=== PATIENT | male | born 2000 | race Caucasian/White ===

== ENCOUNTER 2022-11-18 11:34 | Emergency (ER) | payer OTHER, SELFPAY ==
[2022-11-18] VITALS (34 sets, daily range): BP systolic 99–135; BP diastolic 48–73; PULSE 103–134; RESP 18–30; TEMP 36.8–38.1; O2SAT 93–99; BMI 36.2
--- NOTE | 2022-11-18 12:09 | DI.RAD.S_ITS ---
PROCEDURE: XR CHEST 1V INDICATIONS: suspected sepsis TECHNIQUE: One view of the chest was acquired. COMPARISON: None. FINDINGS: Surgical changes and devices: None. Lungs and pleura: Lungs are clear. No pleural effusions or pneumothorax. Mediastinum: Mediastinal contours appear normal. Heart size is normal. Bones and chest wall: No suspicious bony lesions. Overlying soft tissues appear unremarkable. IMPRESSION: Normal for age, source of current sepsis symptoms is not seen. Dictated by: Wilfredo Cornejo M.D. on 11/18/2022 at 13:02 Approved by: Wilfredo Cornejo M.D. on 11/18/2022 at 13:02
[2022-11-18] MEDS: SODIUM CHLORIDE 0.9% 1,000 ML 1000 ML IV ×2 (12:42→14:03)
[2022-11-18] MEDS: ONDANSETRON 4 MG ODT SL (12:42)
[2022-11-18 12:54] LABS: Add Manual Diff / Slide Review NO; Basophils Absolute Auto 0 /uL (0-100); Basophils Percent Auto 0.2 % (0-2); Eosinophils Absolute Auto 100 /uL (0-450); Eosinophils Percent Auto 0.6 % (2-4); Hematocrit 42.2 % (41-53); Hemoglobin 13.9 g/dL (13.5-17.5); Lymphocytes Absolute Auto 700 /uL (1100-4500); Mean Corpuscular HGB Conc 32.9 % (30-36); Mean Corpuscular Hemoglobin 27.3 PG (26-34); Mean Corpuscular Volume 82.9 fL (80-100); Monocytes Absolute Auto 1000 /uL (0-900); Monocytes Percent Auto 8.5 % (3-14); Neutrophils Absolute Auto 10200 /uL (1500-7000); Neutrophils Percent Auto 84.7 % (50-75); Platelet Count 243 X10^3/uL (150-400); Red Blood Cell Count 5.09 X10^6/uL (4.5-5.9); Red Cell Distribution Width 14.3 % (11.6-14.8); White Blood Cell Count 12.1 X10^3/uL (4.5-11.0)
--- NOTE | 2022-11-18 13:00 | ED.SOB ---
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 Patient's reports that she noticed that he was not breathing for up to 30 seconds and had difficulty waking him. Patient has had symptoms of VANCE in the past and is being referred to sleep medicine for a sleep study. Patient's used a home pulse oximeter and reports a low of 89% and high of 98%. reports that patient was not mentating properly and decided to bring him in for evaluation. No familial history of cardiac or respiratory issues, other than asthma and high cholesterol. Patient has had COVID in the past and experienced body aches, lightheadedness and worsening cough. Related Data Allergies Allergy/AdvReac Type Severity Reaction Status Date / Time No Known Drug Allergies Allergy Verified 11/18/22 13:13 Review of Systems <NEIL Coelho - Last Filed: 11/18/22 17:54> Review of Systems Narrative: Narrative: See HPI. GENERAL: Denies chills, fatigue, fever, sweats. HEENT: Denies sinus pain, ear pain, sore throat, difficulty swallowing. RESPIRATORY: Denies dyspnea, cough, wheezing, sputum. CARDIOVASCULAR: Denies chest pain, palpitations, edema. GASTROINTESTINAL: Denies vomiting, abdominal pain, diarrhea, constipation. Endorses nausea. : Denies dysuria, frequency, incontinence, hematuria, urinary retention, flank pain. MSK: Denies weakness, joint pain, or bony pain. Endorses body aches. SKIN: Denies rash, skin lesions, or pruritis. NEUROLOGIC: Denies weakness, headache, numbness, confusion. Endorses dizziness and lightheadedness. PSYCHIATRIC: No concerning psychosocial issues. Patient History <NEIL Coelho - Last Filed: 11/18/22 17:54> Social History Smoking Status: Never smoker Smoking Status: Never smoker alcohol intake frequency: 0-2 drinks per day Substance Use Type: does not use Exam <NEIL Coelho - Last Filed: 11/18/22 17:54> Narrative Exam Narrative: Exam Narrative: GENERAL: This is a well-nourished, well-developed patient, in mild distress. HEAD: Atraumatic. Normocephalic. EYES: Pupils equal round and reactive. Extraocular motions intact. No scleral icterus, injection or drainage. ENT: Nose without bleeding, purulent drainage. Throat without erythema, tonsillar hypertrophy or exudate. Uvula midline. Airway patent. TMs and canals clear. No sinus tenderness. NECK: Trachea midline. No JVD or lymphadenopathy. Nontender. CARDIOVASCULAR: Regular rate and rhythm without murmurs, peripheral pulses intact, cap refill <2 sec. RESPIRATORY: Breath sounds equal and clear bilaterally. No wheezes, rales, or rhonchi. No cough. No increased respiratory effort. No accessory muscle use. GASTROINTESTINAL: Abdomen soft, non-tender, nondistended without guarding or rebound. No suprapubic pain. MSK: Moves all extremities. Normal range of motion, no clubbing or edema. Neurovascularly intact. NEURO: A&O x 3. SKIN: Warm, dry, no rashes or lesions noted. Initial Vital Signs Initial Vital Signs: Vital Signs Temperature 100.5 F H 11/18/22 12:13 Pulse Rate 134 H 11/18/22 12:13 Respiratory Rate 30 H 11/18/22 12:13 Blood Pressure 126/68 11/18/22 12:13 Pulse Oximetry 98 11/18/22 12:13 Oxygen Delivery Method Room Air 11/18/22 12:13 Reviewed <Kathleen Dubois DO - Last Filed: 11/18/22 20:00> Initial Vital Signs Initial Vital Signs: Vital Signs Temperature 100.5 F H 11/18/22 12:13 Pulse Rate 134 H 11/18/22 12:13 Respiratory Rate 30 H 11/18/22 12:13 Blood Pressure 126/68 11/18/22 12:13 Pulse Oximetry 98 11/18/22 12:13 Oxygen Delivery Method Room Air 11/18/22 12:13 Scores <NEIL Coelho - Last Filed: 11/18/22 17:54> Wells' Criteria for PE Clinical signs and symptoms of DVT: No PE is #1 Dx or equally likely: No Heart rate > 100: Yes Immobilization at least 3 days or surg in previous 4 weeks: No History of PE or DVT: No Hemoptysis: No Malignancy w/Treatment within 6 months or palliative: No Wells' PE Score total: 1.5 Citation:: D-dimer 474 <Kathleen Dubois DO - Last Filed: 11/18/22 20:00> Wells' Criteria for PE Wells' PE Score total: 1.5 Course <NEIL Coelho - Last Filed: 11/18/22 17:54> Orders Ordered: ED Orders 11/18/22 12:03 Covid-19 + FLU A/B + RSV - PCR Stat 11/18/22 12:09 XR chest 1V Stat RT Consult Eval and Treat NOW 11/18/22 12:13 EKG-12 Lead Stat 11/18/22 12:22 Measure peak expiratory flow ONCE RT Consult Eval and Treat NOW 11/18/22 12:30 Complete Blood Count AUTO DIFF Stat Comprehensive Metabolic Panel Stat D Dimer Stat Lactate (Lactic Acid) Stat Lipase Stat PTT Partial Thromboplastin Phi Stat Procalcitonin Stat Prothrombin Time INR Stat Troponin & CK Cardiac Panel Stat 11/18/22 13:02 Urine Culture Stat Urine Microscopic Stat 11/18/22 13:10 Blood Culture Stat 11/18/22 16:46 CT angio chest PE protocol Stat Discontinued Medications Sodium Chloride (Normal Saline 0.9%) 1,000 mls @ 1,000 mls/hr IV BOLUS ONE Stop: 11/18/22 13:08 Last Infusion: 11/18/22 13:55 Dose: 0 mls/hr Documented By: Admin: 11/18/22 12:42 Dose: 1,000 mls/hr Documented By: RB Sodium Chloride (Normal Saline 0.9%) 1,000 mls @ 1,000 mls/hr IV BOLUS ONE Stop: 11/18/22 13:31 Last Infusion: 11/18/22 15:41 Dose: 0 mls/hr Documented By: Admin: 11/18/22 14:03 Dose: 1,000 mls/hr Documented By: RB Ketorolac Tromethamine (Ketorolac 30 Mg/Ml Vial) 30 mg IV NOW ONE Stop: 11/18/22 14:53 Last Admin: 11/18/22 15:40 Dose: 30 mg Documented By: BRENTON Ondansetron HCl (Ondansetron 4 Mg Odt) 4 mg SL NOW PRN PRN Reason: Nausea And Vomiting Last Admin: 11/18/22 12:42 Dose: 4 mg Documented By: BRENTON Ondansetron HCl (Ondansetron 4 Mg/2 Ml Inj) 4 mg IV NOW PRN PRN Reason: Nausea And Vomiting Vital Signs Vital signs: Vital Signs - 8 hr 11/18/22 12:13 11/18/22 12:49 11/18/22 12:50 Temperature 100.5 F H Pulse Rate 134 H 130 H 129 H Respiratory Rate 30 H Blood Pressure 126/68 Pulse Oximetry 98 98 98 Oxygen Delivery Method Room Air 11/18/22 12:50 11/18/22 13:00 11/18/22 13:00 Temperature Pulse Rate 126 H Respiratory Rate 19 Blood Pressure 125/58 L 120/58 L Pulse Oximetry 98 Oxygen Delivery Method 11/18/22 13:15 11/18/22 13:16 11/18/22 13:16 Temperature Pulse Rate 124 H 122 H Respiratory Rate 22 19 Blood Pressure 128/59 L Pulse Oximetry 99 99 Oxygen Delivery Method 11/18/22 13:30 11/18/22 13:30 11/18/22 13:45 Temperature Pulse Rate 116 H Respiratory Rate Blood Pressure 126/59 L 128/60 Pulse Oximetry 97 Oxygen Delivery Method 11/18/22 13:45 11/18/22 14:00 11/18/22 14:00 Temperature Pulse Rate 121 H 113 H Respiratory Rate 18 18 Blood Pressure 135/64 Pulse Oximetry 98 97 Oxygen Delivery Method 11/18/22 14:15 11/18/22 14:15 11/18/22 14:30 Temperature Pulse Rate 111 H Respiratory Rate 23 Blood Pressure 116/73 125/58 L Pulse Oximetry 97 Oxygen Delivery Method 11/18/22 14:30 11/18/22 14:45 11/18/22 14:45 Temperature Pulse Rate 121 H 122 H Respiratory Rate 22 Blood Pressure 123/60 Pulse Oximetry 98 98 Oxygen Delivery Method 11/18/22 15:35 11/18/22 15:45 11/18/22 16:00 Temperature Pulse Rate 130 H 123 H 130 H Respiratory Rate 19 Blood Pressure Pulse Oximetry 98 98 95 Oxygen Delivery Method 11/18/22 16:15 11/18/22 16:30 11/18/22 16:45 Temperature 98.2 F Pulse Rate 124 H 114 H 120 H Respiratory Rate 24 20 Blood Pressure Pulse Oximetry 95 94 96 Oxygen Delivery Method 11/18/22 16:46 11/18/22 16:46 11/18/22 16:47 Temperature Pulse Rate 118 H 114 H Respiratory Rate 19 22 Blood Pressure 119/58 L Pulse Oximetry 95 95 Oxygen Delivery Method 11/18/22 16:47 11/18/22 17:04 11/18/22 17:15 Temperature Pulse Rate 110 H Respiratory Rate 24 Blood Pressure 119/58 L Pulse Oximetry 96 95 Oxygen Delivery Method 11/18/22 17:25 11/18/22 17:26 11/18/22 17:26 Temperature Pulse Rate 109 H 107 H Respiratory Rate 23 22 Blood Pressure 104/51 L Pulse Oximetry 95 97 Oxygen Delivery Method 11/18/22 17:29 11/18/22 17:29 11/18/22 17:30 Temperature Pulse Rate 107 H Respiratory Rate 18 Blood Pressure 106/51 L 112/48 L Pulse Oximetry 96 Oxygen Delivery Method 11/18/22 17:30 11/18/22 17:35 11/18/22 17:35 Temperature Pulse Rate 108 H 103 H Respiratory Rate 21 21 Blood Pressure 110/52 L Pulse Oximetry 96 94 Oxygen Delivery Method 11/18/22 17:40 11/18/22 17:40 11/18/22 18:07 Temperature Pulse Rate 107 H 103 H Respiratory Rate 20 24 Blood Pressure 111/50 L 104/49 L Pulse Oximetry 94 97 Oxygen Delivery Method Room Air 11/18/22 17:45 11/18/22 17:45 11/18/22 17:50 Temperature Pulse Rate 108 H Respiratory Rate 21 Blood Pressure 112/59 L 114/56 L Pulse Oximetry 94 Oxygen Delivery Method 11/18/22 17:50 11/18/22 17:55 11/18/22 17:55 Temperature Pulse Rate 109 H 105 H Respiratory Rate 19 26 H Blood Pressure 101/50 L Pulse Oximetry 95 94 Oxygen Delivery Method 11/18/22 18:00 11/18/22 18:00 11/18/22 18:05 Temperature Pulse Rate 103 H Respiratory Rate 24 Blood Pressure 99/55 L 104/49 L Pulse Oximetry 93 Oxygen Delivery Method 11/18/22 18:05 Temperature Pulse Rate Respiratory Rate Blood Pressure Pulse Oximetry 97 Oxygen Delivery Method <Kathleen Dubois, - Last Filed: 11/18/22 20:00> Orders Ordered: ED Orders 11/18/22 12:03 Covid-19 + FLU A/B + RSV - PCR Stat 11/18/22 12:09 XR chest 1V Stat RT Consult Eval and Treat NOW 11/18/22 12:13 EKG-12 Lead Stat 11/18/22 12:22 Measure peak expiratory flow ONCE RT Consult Eval and Treat NOW 11/18/22 12:30 Complete Blood Count AUTO DIFF Stat Comprehensive Metabolic Panel Stat D Dimer Stat Lactate (Lactic Acid) Stat Lipase Stat PTT Partial Thromboplastin Phi Stat Procalcitonin Stat Prothrombin Time INR Stat Troponin & CK Cardiac Panel Stat 11/18/22 13:02 Urine Culture Stat Urine Microscopic Stat 11/18/22 13:10 Blood Culture Stat 11/18/22 16:46 CT angio chest PE protocol Stat Discontinued Medications Sodium Chloride (Normal Saline 0.9%) 1,000 mls @ 1,000 mls/hr IV BOLUS ONE Stop: 11/18/22 13:08 Last Infusion: 11/18/22 13:55 Dose: 0 mls/hr Documented By: Admin: 11/18/22 12:42 Dose: 1,000 mls/hr Documented By: RB Sodium Chloride (Normal Saline 0.9%) 1,000 mls @ 1,000 mls/hr IV BOLUS ONE Stop: 11/18/22 13:31 Last Infusion: 11/18/22 15:41 Dose: 0 mls/hr Documented By: Admin: 11/18/22 14:03 Dose: 1,000 mls/hr Documented By: RB Ketorolac Tromethamine (Ketorolac 30 Mg/Ml Vial) 30 mg IV NOW ONE Stop: 11/18/22 14:53 Last Admin: 11/18/22 15:40 Dose: 30 mg Documented By: RB Ondansetron HCl (Ondansetron 4 Mg Odt) 4 mg SL NOW PRN PRN Reason: Nausea And Vomiting Last Admin: 11/18/22 12:42 Dose: 4 mg Documented By: RB Ondansetron HCl (Ondansetron 4 Mg/2 Ml Inj) 4 mg IV NOW PRN PRN Reason: Nausea And Vomiting Vital Signs Vital signs: Vital Signs - 8 hr 11/18/22 12:13 11/18/22 12:49 11/18/22 12:50 Temperature 100.5 F H Pulse Rate 134 H 130 H 129 H Respiratory Rate 30 H Blood Pressure 126/68 Pulse Oximetry 98 98 98 Oxygen Delivery Method Room Air 11/18/22 12:50 11/18/22 13:00 11/18/22 13:00 Temperature Pulse Rate 126 H Respiratory Rate 19 Blood Pressure 125/58 L 120/58 L Pulse Oximetry 98 Oxygen Delivery Method 11/18/22 13:15 11/18/22 13:16 11/18/22 13:16 Temperature Pulse Rate 124 H 122 H Respiratory Rate 22 19 Blood Pressure 128/59 L Pulse Oximetry 99 99 Oxygen Delivery Method 11/18/22 13:30 11/18/22 13:30 11/18/22 13:45 Temperature Pulse Rate 116 H Respiratory Rate Blood Pressure 126/59 L 128/60 Pulse Oximetry 97 Oxygen Delivery Method 11/18/22 13:45 11/18/22 14:00 11/18/22 14:00 Temperature Pulse Rate 121 H 113 H Respiratory Rate 18 18 Blood Pressure 135/64 Pulse Oximetry 98 97 Oxygen Delivery Method 11/18/22 14:15 11/18/22 14:15 11/18/22 14:30 Temperature Pulse Rate 111 H Respiratory Rate 23 Blood Pressure 116/73 125/58 L Pulse Oximetry 97 Oxygen Delivery Method 11/18/22 14:30 11/18/22 14:45 11/18/22 14:45 Temperature Pulse Rate 121 H 122 H Respiratory Rate 22 Blood Pressure 123/60 Pulse Oximetry 98 98 Oxygen Delivery Method 11/18/22 15:35 11/18/22 15:45 11/18/22 16:00 Temperature Pulse Rate 130 H 123 H 130 H Respiratory Rate 19 Blood Pressure Pulse Oximetry 98 98 95 Oxygen Delivery Method 11/18/22 16:15 11/18/22 16:30 11/18/22 16:45 Temperature 98.2 F Pulse Rate 124 H 114 H 120 H Respiratory Rate 24 20 Blood Pressure Pulse Oximetry 95 94 96 Oxygen Delivery Method 11/18/22 16:46 11/18/22 16:46 11/18/22 16:47 Temperature Pulse Rate 118 H 114 H Respiratory Rate 19 22 Blood Pressure 119/58 L Pulse Oximetry 95 95 Oxygen Delivery Method 11/18/22 16:47 11/18/22 17:04 11/18/22 17:15 Temperature Pulse Rate 110 H Respiratory Rate 24 Blood Pressure 119/58 L Pulse Oximetry 96 95 Oxygen Delivery Method 11/18/22 17:25 11/18/22 17:26 11/18/22 17:26 Temperature Pulse Rate 109 H 107 H Respiratory Rate 23 22 Blood Pressure 104/51 L Pulse Oximetry 95 97 Oxygen Delivery Method 11/18/22 17:29 11/18/22 17:29 11/18/22 17:30 Temperature Pulse Rate 107 H Respiratory Rate 18 Blood Pressure 106/51 L 112/48 L Pulse Oximetry 96 Oxygen Delivery Method 11/18/22 17:30 11/18/22 17:35 11/18/22 17:35 Temperature Pulse Rate 108 H 103 H Respiratory Rate 21 21 Blood Pressure 110/52 L Pulse Oximetry 96 94 Oxygen Delivery Method 11/18/22 17:40 11/18/22 17:40 11/18/22 18:07 Temperature Pulse Rate 107 H 103 H Respiratory Rate 20 24 Blood Pressure 111/50 L 104/49 L Pulse Oximetry 94 97 Oxygen Delivery Method Room Air 11/18/22 17:45 11/18/22 17:45 11/18/22 17:50 Temperature Pulse Rate 108 H Respiratory Rate 21 Blood Pressure 112/59 L 114/56 L Pulse Oximetry 94 Oxygen Delivery Method 11/18/22 17:50 11/18/22 17:55 11/18/22 17:55 Temperature Pulse Rate 109 H 105 H Respiratory Rate 19 26 H Blood Pressure 101/50 L Pulse Oximetry 95 94 Oxygen Delivery Method 11/18/22 18:00 11/18/22 18:00 11/18/22 18:05 Temperature Pulse Rate 103 H Respiratory Rate 24 Blood Pressure 99/55 L 104/49 L Pulse Oximetry 93 Oxygen Delivery Method 11/18/22 18:05 Temperature Pulse Rate Respiratory Rate Blood Pressure Pulse Oximetry 97 Oxygen Delivery Method MDM - SOB/Dyspnea <NEIL Coelho - Last Filed: 11/18/22 17:54> Differential Diagnosis Differential diagnosis: Likely congestive heart failure, community acquired pneumonia, pulmonary embolism and other (Viral illness, COVID-19) Lab Data 11/18/22 12:30 11/18/22 12:30 Labs: Lab Results 11/18/22 11/18/22 11/18/22 Range/Units 12:03 12:30 12:30 WBC 12.1 H (4.5-11.0) X10^3/uL RBC 5.09 (4.5-5.9) X10^6/uL Hgb 13.9 (13.5-17.5) g/dL Hct 42.2 (41-53) % MCV 82.9 (80-100) fL MCH 27.3 (26-34) PG MCHC 32.9 (30-36) % RDW 14.3 (11.6-14.8) % Plt Count 243 (150-400) X10^3/uL Neut % (Auto) 84.7 H (50-75) % Lymph % (Auto) 6.0 L (25-40) % Lawrence % (Auto) 8.5 (3-14) % Eos % (Auto) 0.6 L (2-4) % Baso % (Auto) 0.2 (0-2) % Neut # (Auto) 08657 H (6863-0983) /uL Lymph # (Auto) 700 L (6407-4699) /uL Lawrence # (Auto) 1000 H (0-900) /uL Eos # (Auto) 100 (0-450) /uL Baso # (Auto) 0 (0-100) /uL PT 15.1 H (10.1-12.7) SECONDS INR 1.3 (0.9-1.3) APTT 35 (26-36) SECONDS D-Dimer (<500) ng/ml Sodium (137-145) mmol/L Potassium (3.4-5.1) mmol/L Chloride (98-107) mmol/L Carbon Dioxide (22-32) mmol/L BUN (9-20) mg/dL Creatinine (0.66-1.25) mg/dL Estimated GFR (>60) mL/min BUN/Creatinine Ratio (6-22) Glucose (70-100) mg/dL Lactate (0.7-2.1) mmol/L Calcium (8.4-10.2) mg/dL Total Bilirubin (0.2-1.3) mg/dL AST (17-59) IU/L ALT (<50) IU/L Alkaline Phosphatase (38-126) U/L Total Creatine Kinase (55-170) U/L CK-MB (CK-2) (<2.37) ng/mL CK-MB (CK-2) Rel Index (1.5-5.0) % Troponin I (0.01-0.034) ng/mL Total Protein (6.3-8.2) g/dL Albumin (3.5-5.0) g/dL Globulin (1.7-4.1) g/dL Albumin/Globulin Ratio (1.0-2.8) Lipase (23-300) U/L Procalcitonin (<0.5) ng/mL Urine RBC (0-5/HPF) Urine WBC (0-5/HPF) Urine Bacteria (None) Ur Culture Indicated? Micro UA Comment SARS-CoV-2 (PCR) Negative (Negative) Influenza A (RT-PCR) Flu a negative (NEGATIVE) Influenza B (RT-PCR) Flu b negative (NEGATIVE) RSV (PCR) Negative (Negative) 11/18/22 11/18/22 11/18/22 Range/Units 12:30 12:30 12:30 WBC (4.5-11.0) X10^3/uL RBC (4.5-5.9) X10^6/uL Hgb (13.5-17.5) g/dL Hct (41-53) % MCV (80-100) fL MCH (26-34) PG MCHC (30-36) % RDW (11.6-14.8) % Plt Count (150-400) X10^3/uL Neut % (Auto) (50-75) % Lymph % (Auto) (25-40) % Lawrence % (Auto) (3-14) % Eos % (Auto) (2-4) % Baso % (Auto) (0-2) % Neut # (Auto) (0246-4035) /uL Lymph # (Auto) (4483-3498) /uL Lawrence # (Auto) (0-900) /uL Eos # (Auto) (0-450) /uL Baso # (Auto) (0-100) /uL PT (10.1-12.7) SECONDS INR (0.9-1.3) APTT (26-36) SECONDS D-Dimer (<500) ng/ml Sodium 135 L (137-145) mmol/L Potassium 3.9 (3.4-5.1) mmol/L Chloride 100 (98-107) mmol/L Carbon Dioxide 26 (22-32) mmol/L BUN 15 (9-20) mg/dL Creatinine 1.14 (0.66-1.25) mg/dL Estimated GFR > 60 (>60) mL/min BUN/Creatinine Ratio 13.2 (6-22) Glucose 116 H (70-100) mg/dL Lactate 1.3 (0.7-2.1) mmol/L Calcium 9.0 (8.4-10.2) mg/dL Total Bilirubin 0.8 (0.2-1.3) mg/dL AST 28 (17-59) IU/L ALT 33 (<50) IU/L Alkaline Phosphatase 58 (38-126) U/L Total Creatine Kinase 164 (55-170) U/L CK-MB (CK-2) 0.35 (<2.37) ng/mL CK-MB (CK-2) Rel Index 0.2 L (1.5-5.0) % Troponin I < 0.012 (0.01-0.034) ng/mL Total Protein 8.2 (6.3-8.2) g/dL Albumin 4.7 (3.5-5.0) g/dL Globulin 3.5 (1.7-4.1) g/dL Albumin/Globulin Ratio 1.3 (1.0-2.8) Lipase 92 (23-300) U/L Procalcitonin 0.13 (<0.5) ng/mL Urine RBC (0-5/HPF) Urine WBC (0-5/HPF) Urine Bacteria (None) Ur Culture Indicated? Micro UA Comment SARS-CoV-2 (PCR) (Negative) Influenza A (RT-PCR) (NEGATIVE) Influenza B (RT-PCR) (NEGATIVE) RSV (PCR) (Negative) 11/18/22 11/18/22 Range/Units 12:30 13:02 WBC (4.5-11.0) X10^3/uL RBC (4.5-5.9) X10^6/uL Hgb (13.5-17.5) g/dL Hct (41-53) % MCV (80-100) fL MCH (26-34) PG MCHC (30-36) % RDW (11.6-14.8) % Plt Count (150-400) X10^3/uL Neut % (Auto) (50-75) % Lymph % (Auto) (25-40) % Lawrence % (Auto) (3-14) % Eos % (Auto) (2-4) % Baso % (Auto) (0-2) % Neut # (Auto) (9981-4920) /uL Lymph # (Auto) (0230-9999) /uL Lawrence # (Auto) (0-900) /uL Eos # (Auto) (0-450) /uL Baso # (Auto) (0-100) /uL PT (10.1-12.7) SECONDS INR (0.9-1.3) APTT (26-36) SECONDS D-Dimer 474 (<500) ng/ml Sodium (137-145) mmol/L Potassium (3.4-5.1) mmol/L Chloride (98-107) mmol/L Carbon Dioxide (22-32) mmol/L BUN (9-20) mg/dL Creatinine (0.66-1.25) mg/dL Estimated GFR (>60) mL/min BUN/Creatinine Ratio (6-22) Glucose (70-100) mg/dL Lactate (0.7-2.1) mmol/L Calcium (8.4-10.2) mg/dL Total Bilirubin (0.2-1.3) mg/dL AST (17-59) IU/L ALT (<50) IU/L Alkaline Phosphatase (38-126) U/L Total Creatine Kinase (55-170) U/L CK-MB (CK-2) (<2.37) ng/mL CK-MB (CK-2) Rel Index (1.5-5.0) % Troponin I (0.01-0.034) ng/mL Total Protein (6.3-8.2) g/dL Albumin (3.5-5.0) g/dL Globulin (1.7-4.1) g/dL Albumin/Globulin Ratio (1.0-2.8) Lipase (23-300) U/L Procalcitonin (<0.5) ng/mL Urine RBC None seen (0-5/HPF) Urine WBC None seen (0-5/HPF) Urine Bacteria None seen (None) Ur Culture Indicated? Cult not indicated Micro UA Comment Microscopic normal SARS-CoV-2 (PCR) (Negative) Influenza A (RT-PCR) (NEGATIVE) Influenza B (RT-PCR) (NEGATIVE) RSV (PCR) (Negative) Urine Dip Bedside Urine Glucose Negative Bedside Urine Bilirubin - Negative Bedside Urine Ketone - Negative Urine Specific [place] 1.015 Bedside Urine Occult Blood - Negative Bedside Urine pH 6.5 Bedside Urine Protein +/- 15 Bedside Urine Urobilinogen - Negative Bedside Urine Nitrite - Negative Bedside Urine Leukocytes - Negative Esterase Imaging Data Chest x-ray: Radiologist's Impression: [address] [address] XRay Report Signed Patient: Preethi Tobar MR#: [id number] : 2000 Acct:[id number] Age/Sex: 22 / M Date of Service: 11/18/22 Loc: ED Accession Number: [id number] ?? Procedure: XR chest 1V Ordering Provider: Kathleen Dubois D.O. PROCEDURE:? XR CHEST 1V ? INDICATIONS:? suspected sepsis ? TECHNIQUE:? One view of the chest was acquired.? ? COMPARISON:? None. ? FINDINGS:? ? Surgical changes and devices:? None.? ? Lungs and pleura:? Lungs are clear.? No pleural effusions or pneumothorax.? ? Mediastinum:? Mediastinal contours appear normal.? Heart size is normal.? ? Bones and chest wall:? No suspicious bony lesions.? Overlying soft tissues appear unremarkable.? ? IMPRESSION:? Normal for age, source of current sepsis symptoms is not seen. ? ? Dictated by: Wilfredo Cornejo M.D. on 11/18/2022 at 13:02 ? ? Approved by: Wilfredo Cornejo M.D. on 11/18/2022 at 13:02 ? CT scan - chest: Radiologist's Impression: [address] [address] [address] Scan Report Signed Patient: Preethi Tobar MR#: [id number] : 2000 Acct:[id number] Age/Sex: 22 / M Date of Service: 11/18/22 Loc: ED Accession Number: [id number] ?? Procedure: CT angio chest PE protocol Ordering Provider: Marvel Eaton PROCEDURE:? CT ANGIO CHEST PE PROTOCOL ? INDICATIONS:? Tachycardia ? TECHNIQUE:? After the administration of intravenous contrast, 2 mm thick sections acquired from the pulmonary apices to the posterior costophrenic angles.? 3-dimensional maximum intensity projection (MIP) coronal and sagittal reformats were then acquired through the thorax.? For radiation dose reduction, the following was used:? automated exposure control, adjustment of mA and/or kV according to patient size.? ? COMPARISON:? None. ? FINDINGS:? Image quality:? Excellent.? ? Pulmonary arteries:? Pulmonary arteries are normal in size, and demonstrate no intraluminal filling defects to suggest central pulmonary embolism.? ? Lungs and pleura:? Lungs are clear.? No pleural effusions or pneumothorax.? Central and peripheral airways are patent.? ? Mediastinum:? Heart size is normal, without pericardial effusion.? No mediastinal or hilar adenopathy.? Thoracic aorta is normal in caliber and enhancement.? Esophagus is normal in caliber, without hiatal hernia.? ? Bones and chest wall:? No suspicious bony lesions.? Ribs and thoracic spine appear intact throughout.? Thyroid gland is unremarkable.? No axillary or supraclavicular adenopathy.? ? Abdomen:? Visualized upper abdominal solid organs appear normal in the early arterial phase of enhancement.? ? IMPRESSION:? ? 1. No evidence acute pulmonary emboli. ? 2. No evidence of acute pulmonary process.? ? ? Dictated by: Edgar Cunha M.D. on 11/18/2022 at 17:19 ? ? Approved by: Edgar Cunha M.D. on 11/18/2022 at 17:21 ? ECG Data Interpretation: Sinus tachycardia with ventricular rate of 128 bpm. Left axis deviation. EKG reviewed by Dr. Dubois. [facility] Narrative Medical decision making narrative: 22-year-old male that was brought to the emergency department for cessation breathing and confusion last night. Assessment was encouraging but patient remains tachycardic, despite 2 L of NS, ondansetron and toradol. Chest x-ray was normal. EKG was normal. Labs reveal elevated WBC and PT. Wells score for PE equals 1.5 with a D-dimer of 474. Viral panel negative. CT angiogram was normal. I am encouraged by the results labs and testing and believe patient is safe for discharge. Discussed plan of care and return precautions with patient and spouse, who verbalized understanding and were agreeable with course of action. <Kathleen Dubois, DO - Last Filed: 11/18/22 20:00> Lab Data Labs: Lab Results 11/18/22 11/18/22 11/18/22 Range/Units 12:03 12:30 12:30 WBC 12.1 H (4.5-11.0) X10^3/uL RBC 5.09 (4.5-5.9) X10^6/uL Hgb 13.9 (13.5-17.5) g/dL Hct 42.2 (41-53) % MCV 82.9 (80-100) fL MCH 27.3 (26-34) PG MCHC 32.9 (30-36) % RDW 14.3 (11.6-14.8) % Plt Count 243 (150-400) X10^3/uL Neut % (Auto) 84.7 H (50-75) % Lymph % (Auto) 6.0 L (25-40) % Lawrence % (Auto) 8.5 (3-14) % Eos % (Auto) 0.6 L (2-4) % Baso % (Auto) 0.2 (0-2) % Neut # (Auto) 09279 H (0966-4210) /uL Lymph # (Auto) 700 L (6003-1821) /uL Lawrence # (Auto) 1000 H (0-900) /uL Eos # (Auto) 100 (0-450) /uL Baso # (Auto) 0 (0-100) /uL PT 15.1 H (10.1-12.7) SECONDS INR 1.3 (0.9-1.3) APTT 35 (26-36) SECONDS D-Dimer (<500) ng/ml Sodium (137-145) mmol/L Potassium (3.4-5.1) mmol/L Chloride (98-107) mmol/L Carbon Dioxide (22-32) mmol/L BUN (9-20) mg/dL Creatinine (0.66-1.25) mg/dL Estimated GFR (>60) mL/min BUN/Creatinine Ratio (6-22) Glucose (70-100) mg/dL Lactate (0.7-2.1) mmol/L Calcium (8.4-10.2) mg/dL Total Bilirubin (0.2-1.3) mg/dL AST (17-59) IU/L ALT (<50) IU/L Alkaline Phosphatase (38-126) U/L Total Creatine Kinase (55-170) U/L CK-MB (CK-2) (<2.37) ng/mL CK-MB (CK-2) Rel Index (1.5-5.0) % Troponin I (0.01-0.034) ng/mL Total Protein (6.3-8.2) g/dL Albumin (3.5-5.0) g/dL Globulin (1.7-4.1) g/dL Albumin/Globulin Ratio (1.0-2.8) Lipase (23-300) U/L Procalcitonin (<0.5) ng/mL Urine RBC (0-5/HPF) Urine WBC (0-5/HPF) Urine Bacteria (None) Ur Culture Indicated? Micro UA Comment SARS-CoV-2 (PCR) Negative (Negative) Influenza A (RT-PCR) Flu a negative (NEGATIVE) Influenza B (RT-PCR) Flu b negative (NEGATIVE) RSV (PCR) Negative (Negative) 11/18/22 11/18/22 11/18/22 Range/Units 12:30 12:30 12:30 WBC (4.5-11.0) X10^3/uL RBC (4.5-5.9) X10^6/uL Hgb (13.5-17.5) g/dL Hct (41-53) % MCV (80-100) fL MCH (26-34) PG MCHC (30-36) % RDW (11.6-14.8) % Plt Count (150-400) X10^3/uL Neut % (Auto) (50-75) % Lymph % (Auto) (25-40) % [place] % (Auto) (3-14) % Eos % (Auto) (2-4) % Baso % (Auto) (0-2) % Neut # (Auto) (1251-2026) /uL Lymph # (Auto) (9354-9321) /uL Lawrence # (Auto) (0-900) /uL Eos # (Auto) (0-450) /uL Baso # (Auto) (0-100) /uL PT (10.1-12.7) SECONDS INR (0.9-1.3) APTT (26-36) SECONDS D-Dimer (<500) ng/ml Sodium 135 L (137-145) mmol/L Potassium 3.9 (3.4-5.1) mmol/L Chloride 100 (98-107) mmol/L Carbon Dioxide 26 (22-32) mmol/L BUN 15 (9-20) mg/dL Creatinine 1.14 (0.66-1.25) mg/dL Estimated GFR > 60 (>60) mL/min BUN/Creatinine Ratio 13.2 (6-22) Glucose 116 H (70-100) mg/dL Lactate 1.3 (0.7-2.1) mmol/L Calcium 9.0 (8.4-10.2) mg/dL Total Bilirubin 0.8 (0.2-1.3) mg/dL AST 28 (17-59) IU/L ALT 33 (<50) IU/L Alkaline Phosphatase 58 (38-126) U/L Total Creatine Kinase 164 (55-170) U/L CK-MB (CK-2) 0.35 (<2.37) ng/mL CK-MB (CK-2) Rel Index 0.2 L (1.5-5.0) % Troponin I < 0.012 (0.01-0.034) ng/mL Total Protein 8.2 (6.3-8.2) g/dL Albumin 4.7 (3.5-5.0) g/dL Globulin 3.5 (1.7-4.1) g/dL Albumin/Globulin Ratio 1.3 (1.0-2.8) Lipase 92 (23-300) U/L Procalcitonin 0.13 (<0.5) ng/mL Urine RBC (0-5/HPF) Urine WBC (0-5/HPF) Urine Bacteria (None) Ur Culture Indicated? Micro UA Comment SARS-CoV-2 (PCR) (Negative) Influenza A (RT-PCR) (NEGATIVE) Influenza B (RT-PCR) (NEGATIVE) RSV (PCR) (Negative) 11/18/22 11/18/22 Range/Units 12:30 13:02 WBC (4.5-11.0) X10^3/uL RBC (4.5-5.9) X10^6/uL Hgb (13.5-17.5) g/dL Hct (41-53) % MCV (80-100) fL MCH (26-34) PG MCHC (30-36) % RDW (11.6-14.8) % Plt Count (150-400) X10^3/uL Neut % (Auto) (50-75) % Lymph % (Auto) (25-40) % Lawrence % (Auto) (3-14) % Eos % (Auto) (2-4) % Baso % (Auto) (0-2) % Neut # (Auto) (0936-3183) /uL Lymph # (Auto) (6832-5110) /uL Lawrence # (Auto) (0-900) /uL Eos # (Auto) (0-450) /uL Baso # (Auto) (0-100) /uL PT (10.1-12.7) SECONDS INR (0.9-1.3) APTT (26-36) SECONDS D-Dimer 474 (<500) ng/ml Sodium (137-145) mmol/L Potassium (3.4-5.1) mmol/L Chloride (98-107) mmol/L Carbon Dioxide (22-32) mmol/L BUN (9-20) mg/dL Creatinine (0.66-1.25) mg/dL Estimated GFR (>60) mL/min BUN/Creatinine Ratio (6-22) Glucose (70-100) mg/dL Lactate (0.7-2.1) mmol/L Calcium (8.4-10.2) mg/dL Total Bilirubin (0.2-1.3) mg/dL AST (17-59) IU/L ALT (<50) IU/L Alkaline Phosphatase (38-126) U/L Total Creatine Kinase (55-170) U/L CK-MB (CK-2) (<2.37) ng/mL CK-MB (CK-2) Rel Index (1.5-5.0) % Troponin I (0.01-0.034) ng/mL Total Protein (6.3-8.2) g/dL Albumin (3.5-5.0) g/dL Globulin (1.7-4.1) g/dL Albumin/Globulin Ratio (1.0-2.8) Lipase (23-300) U/L Procalcitonin (<0.5) ng/mL Urine RBC None seen (0-5/HPF) Urine WBC None seen (0-5/HPF) Urine Bacteria None seen (None) Ur Culture Indicated? Cult not indicated Micro UA Comment Microscopic normal SARS-CoV-2 (PCR) (Negative) Influenza A (RT-PCR) (NEGATIVE) Influenza B (RT-PCR) (NEGATIVE) RSV (PCR) (Negative) Urine Dip Bedside Urine Glucose Negative Bedside Urine Bilirubin - Negative Bedside Urine Ketone - Negative Urine Specific [place] 1.015 Bedside Urine Occult Blood - Negative Bedside Urine pH 6.5 Bedside Urine Protein +/- 15 Bedside Urine Urobilinogen - Negative Bedside Urine Nitrite - Negative Bedside Urine Leukocytes - Negative Esterase Discharge Plan Departure Patient Disposition: Home Clinical Impression: Viral respiratory illness Instructions: DI for Viral Upper Respiratory Infection -- Adult Activity Restrictions/Additional Instructions: *You have been diagnosed with viral upper respiratory infection. Your chest x-ray, CT, EKG and labs were all normal. Your viral panel was negative for COVID, flu a and B and RSV. We gave you 2 L of normal saline through your IV along with Toradol for your fever and body aches and Zofran for your nausea. Good supportive care includes getting plenty of rest, adequate hydration and [id number] medications as needed for comfort. For any worsening symptoms, please return to the emergency department. Otherwise please follow-up with your family doctor as needed. *What to do: *Please continue to take your regular medications as directed. [ ] New medication prescriptions sent to your pharmacy: [ ] [ ] New medication written as a paper prescription [x ] No new medications given *Please follow up with your primary care provider in 2-3 days, call for an appointment. Let them know you were seen in the Emergency Department and that we ask that you be seen in follow up. We will electronically transmit a record of today's note if your PCP is in our system *If you do not have a primary care provider please contact the [facility] Resource line at [phone]. They will ask some questions about your medical history and help get you set up with a doctor in the community. ? Return to ER if you should have any new, worsening or concerning symptoms, such as worsening pain, severe headache, confusion, chest pain, difficulty breathing, fever greater than 101 F, shaking chills, persistent vomiting to the point that you cannot drink fluids, or other new or worsening symptoms. Referrals: Provider,Prashanth ARCHIBALD [Primary Care Provider] - Stand Alone Forms: Patient Portal/API <Kathleen Dubois DO - Last Filed: 11/18/22 20:00> Cosign ED Attending Cosignature Attestation: Who was involved in patient care. He is a 22-year-old male febrile with infectious like symptoms persistently tachycardic throughout his stay. D-dimer is negative however still tachycardic blood pressure getting little bit low. CT angio does not show any pulmonary embolism. Blood work does not show any sign of severe sepsis not necessarily hypotensive. He is given Toradol for low-grade fever as well 2 L of fluids his heart rate does improve. Lactate 1.3. Patient awake alert oriented no sinus appear distressed. I was immediately available in the department for consultation. Documentation has been reviewed.
[2022-11-18 13:02] LABS: INR 1.3 (0.9-1.3); Prothrombin Time 15.1 SECONDS (10.1-12.7)
[2022-11-18 13:04] LABS: PTT Partial Thromboplastin Tim 35 SECONDS (26-36)
[2022-11-18 13:08] LABS: Alanine Aminotransferase 33 IU/L (<50); Albumin 4.7 g/dL (3.5-5.0); Albumin Globulin Ratio 1.3 (1.0-2.8); Alkaline Phosphatase 58 U/L (38-126); Aspartate Aminotransferase 28 IU/L (17-59); BUN Creatinine Ratio 13.2 (6-22); Bilirubin Total 0.8 mg/dL (0.2-1.3); Blood Urea Nitrogen 15 mg/dL (9-20); Carbon Dioxide 26 mmol/L (22-32); Chloride 100 mmol/L (98-107); Estimated Glomerular Filt Rate > 60 mL/min (>60); Globulin 3.5 g/dL (1.7-4.1); Glucose 116 mg/dL (70-100); HEMOLYSIS < 15 (0-50); Lipase 92 U/L (23-300); Potassium 3.9 mmol/L (3.4-5.1); Sodium 135 mmol/L (137-145); Total Protein 8.2 g/dL (6.3-8.2)
[2022-11-18 13:09] LABS: Creatine Kinase 164 U/L (55-170); Lactate (Lactic Acid) 1.3 mmol/L (0.7-2.1)
[2022-11-18 13:16] LABS: Influenza A - CEPHEID Flu A NEGATIVE (NEGATIVE); Influenza B - CEPHEID Flu B NEGATIVE (NEGATIVE); Respiratory Syncytial Virus Negative (Negative)
[2022-11-18 13:19] LABS: Troponin I < 0.012 ng/mL (0.01-0.034)
[2022-11-18 13:22] LABS: D Dimer 474 ng/ml (<500)
[2022-11-18 13:24] LABS: CKMB % Relative Index 0.2 % (1.5-5.0); Creatine Kinase MB 0.35 ng/mL (<2.37); Procalcitonin 0.13 ng/mL (<0.5)
[2022-11-18 13:27] LABS: COVID-19 CEPHEID 4-PLEX PCR Negative (Negative)
[2022-11-18 13:40] LABS: Bacteria Urine None Seen; Culture Indicated Urine Cult Not Indicated; RBC Urine None Seen (0-5/HPF); Urine Comments Microscopic Normal; WBC Urine None Seen (0-5/HPF)
[2022-11-18] MEDS: KETOROLAC 30 MG/ML VIAL IV (15:40)
--- NOTE | 2022-11-18 16:46 | DI.CT.S_ITS ---
PROCEDURE: CT ANGIO CHEST PE PROTOCOL INDICATIONS: Tachycardia TECHNIQUE: After the administration of intravenous contrast, 2 mm thick sections acquired from the pulmonary apices to the posterior costophrenic angles. 3-dimensional maximum intensity projection (MIP) coronal and sagittal reformats were then acquired through the thorax. For radiation dose reduction, the following was used: automated exposure control, adjustment of mA and/or kV according to patient size. COMPARISON: None. FINDINGS: Image quality: Excellent. Pulmonary arteries: Pulmonary arteries are normal in size, and demonstrate no intraluminal filling defects to suggest central pulmonary embolism. Lungs and pleura: Lungs are clear. No pleural effusions or pneumothorax. Central and peripheral airways are patent. Mediastinum: Heart size is normal, without pericardial effusion. No mediastinal or hilar adenopathy. Thoracic aorta is normal in caliber and enhancement. Esophagus is normal in caliber, without hiatal hernia. Bones and chest wall: No suspicious bony lesions. Ribs and thoracic spine appear intact throughout. Thyroid gland is unremarkable. No axillary or supraclavicular adenopathy. Abdomen: Visualized upper abdominal solid organs appear normal in the early arterial phase of enhancement. IMPRESSION: 1. No evidence acute pulmonary emboli. 2. No evidence of acute pulmonary process. Dictated by: Edgar Cunha M.D. on 11/18/2022 at 17:19 Approved by: Edgar Cunha M.D. on 11/18/2022 at 17:21
== END 2022-11-18 18:10 | disposition home or self-care (01) ==
PROVIDERS: Emergency Medicine; Emergency Provider Registered Nurse
DX: J98.8 Other specified respiratory disorders (principal); R00.0 Tachycardia, unspecified; R79.89 Other specified abnormal findings of blood chemistry; Z20.822 Contact with and (suspected) exposure to COVID-19
CPT/HCPCS: 0241U; 71045; 71275; 80053; 81003; 81015; 82550; 82553; 83605; 83690; 84145; 84484; 85025; 85379; 85610; 85730; 87040; 87086; 93005; 93010; 96374; 99284; J1885

== ENCOUNTER 2022-11-21 11:23 | Emergency (ER) | payer OTHER, SELFPAY ==
[2022-11-21 12:09] VITALS: BP 130/70; PULSE 98; RESP 16; TEMP 36.3; O2SAT 97; BMI 35.8
--- NOTE | 2022-11-21 14:50 | ED.GENADULT ---
HPI - General Adult General Chief complaint: Abdominal Pain Stated complaint: sent by [place]/ violent Diarrhea/ abd cramps T-2 Time Seen by Provider: 11/21/22 14:32 Source: patient Mode of arrival: Family Vehicle Limitations: no limitations History of Present Illness HPI narrative: Patient is an otherwise healthy 22-year-old male who is here for evaluation of 2 days of abdominal cramping and diarrhea. No recent travel. No recent antibiotics. When he is sitting down he is feeling somewhat better it is when he stands up was when he starts getting the cramping. No urinary symptoms. No blood in his stool. No fevers. Did try Imodium and also Pepto-Bismol without improvement. [place] was [place] department [place] [employer] [facility] [place]. Related Data Allergies Allergy/AdvReac Type Severity Reaction Status Date / Time No Known Drug Allergies Allergy Verified 11/21/22 12:11 Review of Systems Constitutional Constitutional: Reports system reviewed and no additional complaints, except as documented Respiratory Respiratory: Reports system reviewed and no additional complaints, except as documented Gastrointestinal Gastrointestinal: Reports system reviewed and no additional complaints, except as documented Genitourinary Genitourinary: Reports system reviewed and no additional complaints, except as documented Integumentary/Breasts Skin/Breast: Reports system reviewed and no additional complaints, except as documented Neurologic Neurologic: Reports system reviewed and no additional complaints, except as documented Hematologic/Lymphatic On Anticoagulants: No Patient History Social History Smoking Status: Never smoker Smoking Status: Never smoker alcohol intake frequency: other Substance Use Type: does not use Exam Initial Vital Signs Initial Vital Signs: Vital Signs Temperature 97.3 F L 11/21/22 12:09 Pulse Rate 98 H 11/21/22 12:09 Respiratory Rate 16 11/21/22 12:09 Blood Pressure 130/70 11/21/22 12:09 Pulse Oximetry 97 11/21/22 12:09 Oxygen Delivery Method Room Air 11/21/22 12:09 Const General: cooperative, comfortable and No ill appearing [facility] Head: normal to inspection and normocephalic Resp Effort & Inspection: normal respiratory effort Cardio Rate: regular rate GI Inspection: non-distended Palpation: No guarding Skin General: no rashes or lesions noted Neuro General: patient alert and patient awake Course Vital Signs Vital signs: Vital Signs - 8 hr 11/21/22 12:09 Temperature 97.3 F L Pulse Rate 98 H Respiratory Rate 16 Blood Pressure 130/70 Pulse Oximetry 97 Oxygen Delivery Method Room Air Medical Decision Making MDM Narrative Medical decision making narrative: Patient has been unable to provide a stool sample for us here in the emergency department. He has no recent travel nor antibiotics. He is not febrile. He has had diarrhea for the past 2 days. The only abdominal symptoms he is having is cramping around the time of having the diarrhea. Is tolerating oral intake. We will hold on further workup for now. No indication for antibiotics. Will hold on a CT scan for now. We did discuss the use of antidiarrheal medicines. He states he can maintain his hydration at home. He was given return precautions. He expressed understanding and agreement. Discharge Plan Departure Patient Disposition: Home Clinical Impression: Diarrhea Instructions: Diarrhea (Alternative Therapy), Diarrhea Activity Restrictions/Additional Instructions: Be sure that you are increasing your fluid intake and use the antidiarrheal medicines like we discussed. Contact your medical department for a follow-up. Return to the emergency department for new symptoms. Referrals: ProviderPrashanth [Primary Care Provider] - Stand Alone Forms: Patient Portal/API
== END 2022-11-21 15:05 | disposition home or self-care (01) ==
PROVIDERS: Emergency Provider Emergency Medicine
DX: R19.7 Diarrhea, unspecified (principal)
CPT/HCPCS: 99281